=== PATIENT | female | born 1955 | race Caucasian/White ===

== ENCOUNTER → 2019-04-12 | Day surgery (SDC) | payer OTHER ==
[~2019-04-12] MED LIST: ALENDRONATE SOD70 MG PO; BONIVA150 MG PO; CALCIUM CARBON500 MG PO; HYOSCYAMINE 0.125 MG TAB ONE; METFORMIN HCL500 MG PO; SENIOR VITAMIN PO
--- OUTSIDE RECORDS SUMMARY | 2019-04-12 06:31 | XMS REPORT ---
Author Author [facility] Address Unknown Phone Unavailable Care Team Providers Care Director Of Technology Name Role Phone Unavailable Unavailable Problems This patient has no known problems. Allergies, Adverse Reactions, Alerts This patient has no known allergies or adverse reactions. Medications This patient has no known medications. Results Test Description Test Time Test Comments Text Results Atomic Results Result Comments BREAST ULTRASOUND LEFT 2018-06-07 10:06:05 - DIAG MAMM LEFT KATIE CAD DIGITALUNILATERAL LEFT DIGITAL DIAGNOSTIC MAMMOGRAM 3D/2D WITH CAD: 06/07/2018CLINICAL: Abnormal Mammogram. Digital breast tomosynthesis was performed in addition to routine CC and MLO views. Current mammographic images were evaluated by either a [employer] M- Vu or a [employer] ImageChecker CAD (computer aided detection system). Comparison is made to exams dated 05/22/2018 mammogram, 05/20/2017 mammogram, and 03/18/2016 mammogram - [facility]. The tissue of the left breast is extremely dense, which lowers the sensitivity of mammography. The abnormality seen on the screening mammogram does not persist with additional imaging, compatible with superimposition of normal breast tissue.No suspicious mass, architectural distortion, malignant type calcification, or lymph node abnormality detected. INCOMPLETE ASSESSMENT: ADDITIONAL IMAGING EVALUATION RECOMMENDEDNo mammographic evidence of malignancy.A same day whole left breast survey ultrasound was also performed. Please see report.- BREAST ULTRASOUND LEFTULTRASOUND OF LEFT BREAST AND LEFT AXILLA: 06/07/2018Comparison is made to exams dated 05/22/2018 mammogram, 05/20/2017 mammogram, and 03/18/2016 mammogram - [facility]. Color flow and real-time ultrasound of the left breast and axilla were performed. Headley scale images of the real-time examination were reviewed. No abnormalities were seen sonographically in the entire left breast or the left axilla. IMPRESSION: NEGATIVE No sonographic evidence of malignancy. Recommend annual screening mammography in one year, unless earlier diagostic evaluation is clinically warranted. The above findings and recommendations were discussed with the patient at the time of the examination.Lore Ortega MD hs/:06/07/2018 10:06:05 Entry: - 07:17:45Imaging Technologist: Wendy Llamas , [facility] sent: BIRADS 1-2 Combo FU Letter Mammogram BI-RADS: 0 Indeterminate Ultrasound BI-RADS: 1 Negative DIAG MAMM LEFT KATIE CAD DIGITAL 2018-06-07 10:06:05 - DIAG MAMM LEFT KATIE CAD DIGITALUNILATERAL LEFT DIGITAL DIAGNOSTIC MAMMOGRAM 3D/2D WITH CAD: 06/07/2018CLINICAL: Abnormal Mammogram. Digital breast tomosynthesis was performed in addition to routine CC and MLO views. Current mammographic images were evaluated by either a [employer] M-Vu or a [employer] ImageChecker CAD (computer aided detection system). Comparison is made to exams dated 05/22/2018 mammog lucio, 05/20/2017 mammogram, and [facility] The tissue of the left breast is extremely dense, which lowers the sensitivity of mammography. The abnormality seen on the screening mammogram does not persist with additional imaging, compatible with superimposition of normal breast tissue.No suspicious mass, architectural distortion, malignant type calcification, or lymph node abnormality detected. INCOMPLETE ASSESSMENT: ADDITIONAL IMAGING EVALUATION RECOMMENDEDNo mammographic evidence of malignancy.A same day whole left breast survey ultrasound was also performed. Please see report.- BREAST ULTRASOUND LEFTULTRASOUND OF LEFT BREAST AND LEFT AXILLA: 06/07/2018Comparison is made to exams dated 05/22/2018 mammogram, 05/20/2017 mammogram, and [facility]. Color flow and real-time ultrasound of the left breast and axilla were performed. Headley scale images of the real-time examination were reviewed. No abnormalities were seen sonographically in the entire left breast or the left axilla. IMPRESSION: NEGATIVE No sonographic evidence of malignancy. Recommend annual screening mammography in one year, unless earlier diagostic evaluation is clinically warranted. The above findings and recommendations were discussed with the patient at the time of the examination.Lore Ortega MD hs/:06/07/2018 10:06:05 Entry: lc - 06/13/2018 07:17:45Imaging Technologist: Wendy Llamas , [facility] BIRADS 1-2 Combo FU Letter Mammogram BI-RADS: 0 Indeterminate Ultrasound BI-RADS: 1 Negative SCR MAMM BILATERAL KATIE CAD DIGITAL 2018-05-22 14:45:59 - SCR MAMM BILATERAL KATIE CAD DIGITALBILATERAL DIGITAL SCREENING MAMMOGRAM 3D/2D WITH CAD: 05/22/2018CLINICAL: Asymptomatic. Digital breast tomosynthesis was performed in addition to routine CC and MLO views. Current mammographic images were evaluated by either a [employer] M-Vu or a [employer] ImageReceepter CAD (computer aided detection system). Comparison is made to exams dated 05/20/2017 mammogram, 03/09 mammogram, and [facility]. The tissue of both breasts is heterogeneously dense, which lowers the sensitivity of mammography. Asymmetry that measures 13 mm only seen in the left breast craniocaudal view laterally, approximately 5 cm from the nipple, possibly superimposition of tissue. No suspicious mass, architectural distortion, malignant type calcification, or lymph node abnormality detected in the right breast. IMPRESSION: INCOMPLETE ASSESSMENT: ADDITIONAL IMAGING EVALUATION RECOMMENDEDAsymmetry that measures 13 mm only seen in the left breast cranio caudal view laterally, approximately 5 cm from the nipple, possibly superimposition of tissue. Spot compression tomosynthesis and possible ultrasound are recommended at this time.Leander Wang M.D. ss/:05/22/2018 14:45:59 Stenciler: Natalia Harris , [facility] Additional Imaging Mammogram BI-RADS: 0 Indeterminate
--- OUTSIDE RECORDS SUMMARY | 2019-04-12 06:31 | XMS REPORT | Summary of Care ---
Author Author ZAK GARZA M.D. Organization Unknown Address Unknown Phone Unavailable Care Team Providers Care Forgesmith Name Role Phone ZAK GARZA M.D. Unavailable Unavailable ZAK GARZA MD Unavailable Unavailable Unavailable Unavailable Functional Status Name Dates Details Functional status health issues are not documented Status: Name Dates Details Cognitive status health issues are not documented Status: Problems Name Dates Details Encounter for gynecological examination (V72.31, Z01.419) Status: Active Post-menopausal (V49.81, Z78.0) Status: Active Osteoporosis screening (V82.81, Z13.820) Status: Active Skin lesion (709.9, L98.9) Status: Active Mass of soft tissue of left upper extremity (782.2, R22.32) Status: Active Cat scratch of left forearm, sequela (906.2, S50.812S) Status: Active Impacted cerumen of right ear (380.4, H61.21) Status: Active Impacted cerumen of left ear (380.4, H61.22) Status: Active Bilateral impacted cerumen (380.4, H61.23) Status: Active Abnormal CBC (790.6, R79.89) Status: Active Rectal bleeding (569.3, K62.5) Status: Active Dyslipidemia (272.4, E78.5) Status: Active External hemorrhoids (455.3, K64.4) Status: Active Screening mammogram, encounter for (V76.12, Z12.31) Status: Active Need for influenza vaccination (V04.81, Z23) Status: Active Need for hepatitis C screening test (V73.89, Z11.59) Status: Active Thrombocytopenia (287.5, D69.6) Status: Active Mammogram abnormal (793.80, R92.8) Status: Active Pre-diabetes (790.29, R73.03) Status: Active Age related osteoporosis, unspecified pathological fracture presence (733.01, M81.0) Status: Active BMI (body mass index) 20.0-29.9 Status: Active 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 * Quantity: 4 Refills: 0 SATTAR M.D., ZAK * Start : 14-Jun-2017 Active Proctozone-HC 2.5 % Rectal Cream APPLY ONCE DAILY NEEDED. * Refills: 0 Active 30 GM Tube Allergies and Adverse Reactions Name Dates Details Penicillins (Allergy) Status: Active Procedures Procedure Dates Details History of Foot surgery Completed History of Knee surgery Completed History of Colonoscopy Completed Immunization Name Dates Details Tdap on: 19-Jan-2017 Fluarix Quadrivalent 0.5 ML Intramuscular Suspension Prefilled Syringe on: 06-Feb-2017 Shingrix 50 MCG Intramuscular Suspension Reconstituted on: 07-Dec-2017 Fluzone Quadrivalent 0.5 ML Intramuscular Suspension Lot #: [id number] on: 30-Jan-2018 Shingrix 50 MCG Intramuscular Suspension Reconstituted on: 09-Mar-2018 Family History Name Dates Details Family history of hypertension (V17.49, Z82.49) Comments: Family History Status: Active Family history of diabetes mellitus (V18.0, Z83.3) Comments: Family History Status: Active Family history of obesity (V18.19, Z83.49) Comments: Family History Status: Active Family history of cardiac disorder (V17.49, Z82.49) Comments: Family History Status: Active Family history of malignant neoplasm of breast (V16.3, Z80.3) Comments: Family History Status: Active Name Dates Details Family history of cardiac arrest (V17.49, Z82.49) Status: Active Name Dates Details Family history of hyperlipidemia (V18.19, Z83.438) Status: Active Social History Name Dates Details - Status: Name Dates Details Never smoker Vital Signs Date Test Result Details No Known Vitals to report Results Date Description Value Details Results not documented Plan of Care Name Dates Details Planned Observations Planned Goals not documented Planned Encounters Appointment; ZAK GARZA M.D. On: 01-Mar-2019 10:00 Interventions Provided Medication Changes* Alendronate Sodium 70 MG Oral Tablet - Renew Instructions Name Dates Details Instructions not documented Encounters Appointment; ZAK GARZA M.D. Encounter Diagnosis: Problem not documented On: 13-Apr-2017 10:00 Appointment; ZAK GARZA M.D. Encounter Diagnosis: Problem not documented On: 04-May-2017 13:00 Appointment; KYARA MARQUEZ D.O. Encounter Diagnosis: Problem not documented On: 13-May-2017 11:30 Appointment; KYARA MARQUEZ D.O. Encounter Diagnosis: Problem not documented On: 14-Jun-2017 10:15 Appointment; KALYAN CHERY M.D. Encounter Diagnosis: Problem not documented On: 24-Jun-2017 9:30 Appointment; KALYAN CHERY M.D. Encounter Diagnosis: Problem not documented On: 07-Jul-2017 9:00 Appointment; CRIS HOWARD PA-C Encounter Diagnosis: Problem not documented On: 20-Jul-2017 10:00 Appointment; ZAK AGRZA M.D. Encounter Diagnosis: Problem not documented On: 03-Aug-2017 8:00 Appointment; GERALD SANDHU M.D. Encounter Diagnosis: Problem not documented On: 18-Aug-2017 9:15 Appointment; ZAK GARZA M.D. Encounter Diagnosis: Problem not documented On: 26-Sep-2017 14:30 Appointment; NICHELLE GILES M.D. Encounter Diagnosis: Problem not documented On: 17-Oct-2017 10:30 Appointment; ZAK GARZA M.D. Encounter Diagnosis: Problem not documented On: 30-Jan-2018 8:00 Appointment; ZAK GARZA M.D. Encounter Diagnosis: Problem not documented On: 23-Aug-2018 11:30
[2019-04-12 10:25] VITALS: BP 100/72
--- NOTE | 2019-04-12 12:22 | Operative Report ---
DATE OF PROCEDURE: 04/12/2019 SURGEON: Saman Heller MD PROCEDURE: Colonoscopy with polypectomy. INDICATIONS FOR COLONOSCOPY: Surveillance colonoscopy, personal history of colon polyps. MEDICATIONS: The patient was done under MAC, please see anesthesiologist's note. PROCEDURE IN DETAIL: With the patient in the left lateral decubitus position, the flexible fiberoptic Olympus colonoscope was inserted into the rectum with ease and advanced all the way to the cecum. It was then withdrawn slowly. Mucosa overlying the cecum, ascending colon, transverse colon, and descending colon appeared to be within normal limits. Diverticular disease was noted in the sigmoid colon. Two minute polyps were hot biopsied from the sigmoid and one submucosal nodule was hot biopsied from the proximal rectum. The scope was then retroflexed into the distal rectum and moderate-sized internal hemorrhoids were noted, none of which was actively bleeding. The scope was then straightened out, it was subsequently withdrawn, and the patient tolerated the procedure well. IMPRESSION: 1. Diverticulosis. 2. Sigmoid colon polyps x2, hot biopsied. 3. Minute nodule, proximal rectum, hot biopsied. 4. Internal hemorrhoids, none actively bleeding. PLAN: Follow up histology. Initiate high-fiber, low-fat diet. Initiate high-fiber supplement. The patient might benefit from a followup colonoscopy in 5 years. Saman Heller MD [facility] [place] /[id number] cc: Maura Nunez MD
== END | disposition home or self-care (01) ==
LOC: OR 06:29
PROVIDERS: ATTEND Internal Medicine Gastroenterology
DX: Z09 Encounter for follow-up examination after completed treatment for conditions other than malignant neoplasm (principal); K63.5 Polyp of colon; K62.1 Rectal polyp; K57.30 Diverticulosis of large intestine without perforation or abscess without bleeding; K64.8 Other hemorrhoids; M85.80 Other specified disorders of bone density and structure, unspecified site; E11.9 Type 2 diabetes mellitus without complications; Z88.0 Allergy status to penicillin; Z01.810 Encounter for preprocedural cardiovascular examination; Z79.84 Long term (current) use of oral hypoglycemic drugs
CPT/HCPCS: 36415; 45378; 45384; 82948; 93005

== ENCOUNTER → 2020-08-22 | Day surgery (SDC) | payer MEDICARE ==
[2020-08-19 14:39] LABS: BASOPHILS # (AUTO) 0.1 (0.0-0.1); BASOPHILS % 0.6 % (0.0-1.0); EOSINOPHILS # (AUTO) 0.1 (0.0-0.4); EOSINOPHILS % 1.6 % (0.0-6.0); HEMATOCRIT 35.5 % (34.2-44.1); HEMOGLOBIN 11.9 g/dL (12.0-16.0); LYMPHOCYTES # (AUTO) 1.9 (1.0-3.2); LYMPHOCYTES % 22.9 % (18.0-39.1); MEAN CORPUSCULAR HGB CONC 33.5 g/dL (31-35); MEAN CORPUSCULAR VOLUME 95.4 fL (81-99); MONOCYTES # (AUTO) 0.7 (0.2-0.8); MONOCYTES % 8.5 % (4.4-11.3); NEUTROPHILS # (AUTO) 5.5 (2.1-6.9); NEUTROPHILS % 66.2 % (38.7-80.0); PLATELET COUNT 285 x10e3/uL (140-360); RED BLOOD COUNT 3.72 x10e6/uL (3.6-5.1); RED CELL DISTRIBUTION WIDTH 12.3 % (11.7-14.4)
[~2020-08-22] MED LIST changes: +ESTRADIOL1 MG VG; -HYOSCYAMINE 0.125 MG TAB ONE; +HYOSCYAMINE SULFATE 0.5 MG/ML INJ ONE; +PROPOFOL IV EMULSION 10 MG/ML 20 ML VIAL ONE
[2020-08-22 13:05] VITALS: BP 138/76
[2020-08-22 13:24] LABS: WBC,FECAL (FECAL LACTOFERRIN) NEGATIVE (NEGATIVE)
[2020-08-22 14:06] LABS: C DIFFICILE TOXIN A&B AMP PROB NEGATIVE (NEGATIVE)
== END | disposition home or self-care (01) ==
LOC: OR 07:54
PROVIDERS: ATTEND Internal Medicine Gastroenterology
DX: K51.50 Left sided colitis without complications (principal); K62.89 Other specified diseases of anus and rectum; K64.8 Other hemorrhoids; E11.9 Type 2 diabetes mellitus without complications; Z88.0 Allergy status to penicillin; Z01.810 Encounter for preprocedural cardiovascular examination; Z01.812 Encounter for preprocedural laboratory examination; Z20.822 Contact with and (suspected) exposure to COVID-19; Z79.84 Long term (current) use of oral hypoglycemic drugs
CPT/HCPCS: 36415 ×2; 45380; 82948; 83630; 83993; 85025; 87493; 88305; 93005; J1980; J2704; U0002; 45378

== ENCOUNTER 2020-11-13 09:00 | Observation (INO) | payer MEDICARE ==
[2020-11-11 09:38] LABS: BASOPHILS % 0.4 % (0.0-1.0); EOSINOPHILS # (AUTO) 0.1 (0.0-0.4); EOSINOPHILS % 0.7 % (0.0-6.0); HEMATOCRIT 39.7 % (34.2-44.1); HEMOGLOBIN 13.1 g/dL (12.0-16.0); LYMPHOCYTES # (AUTO) 2.3 (1.0-3.2); LYMPHOCYTES % 26.3 % (18.0-39.1); MEAN CORPUSCULAR HEMOGLOBIN 32.1 pg (28-32); MEAN CORPUSCULAR VOLUME 97.3 fL (81-99); MONOCYTES # (AUTO) 0.6 (0.2-0.8); NEUTROPHILS # (AUTO) 5.6 (2.1-6.9); NEUTROPHILS % 65.4 % (38.7-80.0); PLATELET COUNT 245 x10e3/uL (140-360); RED BLOOD COUNT 4.08 x10e6/uL (3.6-5.1); RED CELL DISTRIBUTION WIDTH 12.4 % (11.7-14.4)
[2020-11-11 10:44] LABS: ANION GAP 15.1 mmol/L (8-16); CALCIUM 9.7 mg/dL (8.4-10.2); CREATININE, SERUM 0.72 mg/dL (0.57-1.11); POTASSIUM 4.1 mmol/L (3.5-5.1)
[~2020-11-13] VITALS: Ht 160 cm; Wt 46.7 kg
[~2020-11-13 09:00] MED LIST changes: +BUDESONIDE EC3 MG PO; -HYOSCYAMINE SULFATE 0.5 MG/ML INJ ONE; -PROPOFOL IV EMULSION 10 MG/ML 20 ML VIAL ONE
[2020-11-13] MEDS ORDERED: BUPIVACAINE HCL 0.5% INJ 30 ML VIAL INJ ONE (09:23)
[2020-11-13] MEDS ORDERED: LIDOCAINE HCL 1% LOCAL INJ 20 ML VIAL ONE (09:23)
[2020-11-13] MEDS ORDERED: LIDOCAINE HCL 2% 30 ML TUBE ONE (09:24)
[2020-11-13] MEDS ORDERED: LIDOCAINE 1% W/EPINEPHRINE 20 ML VIAL ONE (09:46)
[2020-11-13] MEDS ORDERED: ACETAMINOPHEN 1000 MG/100 ML IV PRN (11:00)
[2020-11-13] MEDS ORDERED: HYDROCODONE/APAP 7.5MG-325MG 1 EA TAB PO PRN (11:00)
[2020-11-13 12:34] VITALS: BP 117/75
[2020-11-13 13:05] VITALS: BP 117/75
[2020-11-13] MEDS ORDERED: DEXAMETHASONE SOD PHOS INJ 4 MG/ML VIAL ONE (13:05)
[2020-11-13] MEDS ORDERED: LIDOCAINE HCL 2% LOCAL INJ 5 ML SDV VIAL INJ ONE (13:05)
[2020-11-13] MEDS ORDERED: POVIDONE IODINE 0.05% 0.05 % ML PO ONE (13:05)
[2020-11-13] MEDS ORDERED: ONDANSETRON HCL INJ 2MG/ML 2ML 2 MG/ML VIAL ONE (13:05)
[2020-11-13] MEDS ORDERED: EPHEDRINE SULFATE INJ 50 MG/ML VIAL ONE (13:05)
[2020-11-13] MEDS ORDERED: KETOROLAC TROMETHAMINE 30 MG/ML VIAL ONE (13:05)
[2020-11-13] MEDS ORDERED: SEVOFLURANE INHAL SOLN 250 ML PEN BTL ONE (13:05)
[2020-11-13] MEDS ORDERED: PROPOFOL IV EMULSION 10 MG/ML 20 ML VIAL ONE (13:05)
[2020-11-13 13:20] VITALS: BP 117/75
[2020-11-13] MEDS: SODIUM CHLORIDE 0.9% 1000ML 1,000 ML IV SCH ×2 (13:40→22:31)
[2020-11-13] MEDS ORDERED: MIDAZOLAM HCL 2 MG/2 ML VIAL ONE (13:58)
[2020-11-13] MEDS ORDERED: FENTANYL CITRATE/PF 100MCG/2 ML INJ ONE (13:58)
[2020-11-13] MEDS ORDERED: LEVOFLOXACIN 500MG/D5W 100ML 100 ML IV ONE (14:00)
[2020-11-13 16:21] VITALS: BP 106/79
[2020-11-13 20:00] VITALS: BP 98/66
[2020-11-13 21:00] VITALS: BP 98/66
[2020-11-13] MEDS: ONDANSETRON HCL INJ 2MG/ML 2ML 2 MG/ML VIAL IV PRN (23:35)
[2020-11-13] MEDS: HYDROMORPHONE 1MG/1ML INJ IV PRN (23:35)
[2020-11-14] VITALS: BP 119/73
[2020-11-14] MEDS: HYDROMORPHONE 1MG/1ML INJ IV PRN ×3 (02:42→10:05)
[2020-11-14 04:00] VITALS: BP 103/67
[2020-11-14] MEDS: ONDANSETRON HCL INJ 2MG/ML 2ML 2 MG/ML VIAL IV PRN ×2 (05:52→10:05)
[2020-11-14] MEDS: SODIUM CHLORIDE 0.9% 1000ML 1,000 ML IV SCH (05:56)
[2020-11-14 07:28] VITALS: BP 100/72
[2020-11-14 07:50] VITALS: BP 100/72
[2020-11-14 11:32] VITALS: BP 108/71
[2020-11-15] MEDS ORDERED: PANTOPRAZOLE SOD 40 MG TABEC PO SCH (07:30)
== END 2020-11-14 13:30 | disposition home or self-care (01) ==
LOC: OR 09:00 → PACU V 10:59 → MED/SURG 12:26
PROVIDERS: ADMIT Surgery; ATTEND Surgery
DX: K64.5 Perianal venous thrombosis (principal); I10 Essential (primary) hypertension; E11.9 Type 2 diabetes mellitus without complications; Z01.818 Encounter for other preprocedural examination; Z79.4 Long term (current) use of insulin
CPT/HCPCS: 36415 ×3; 46260; 71046; 80048; 82948 ×2; 85025; 88304; 93005; 96375; 96376; C9113; G0378 ×2; J1100; J1170 ×2; J1885; J1956; J2001; J2250; J2405 ×2; J2704; J3010; J7030 ×2

== ENCOUNTER 2020-11-20 04:33 | Observation (INO) | payer MEDICARE ==
[~2020-11-20] VITALS: Ht 160 cm; Wt 48.1 kg
[2020-11-20] MEDS ORDERED: METRONIDAZOLE 500MG/NS 100ML 100 ML IV STA (04:37)
[2020-11-20 04:45] LABS: BASOPHILS # (AUTO) 0.1 (0.0-0.1); BASOPHILS % 0.4 % (0.0-1.0); EOSINOPHILS # (AUTO) 0.1 (0.0-0.4); HEMATOCRIT 39.8 % (34.2-44.1); HEMOGLOBIN 13.2 g/dL (12.0-16.0); LYMPHOCYTES % 15.9 % (18.0-39.1); MEAN CORPUSCULAR HEMOGLOBIN 31.8 pg (28-32); MEAN CORPUSCULAR HGB CONC 33.2 g/dL (31-35); MEAN CORPUSCULAR VOLUME 95.9 fL (81-99); MONOCYTES # (AUTO) 1.1 (0.2-0.8); MONOCYTES % 8.4 % (4.4-11.3); NEUTROPHILS # (AUTO) 9.3 (2.1-6.9); NEUTROPHILS % 73.9 % (38.7-80.0); PLATELET COUNT 234 x10e3/uL (140-360); RED BLOOD COUNT 4.15 x10e6/uL (3.6-5.1); RED CELL DISTRIBUTION WIDTH 12.3 % (11.7-14.4)
[2020-11-20] MEDS ORDERED: MORPHINE SULFATE INJ 4 MG/ML INJ 1ML IV PRN (04:45)
[2020-11-20] MEDS ORDERED: CEFTRIAXONE 1 GM VIAL IV ONE (04:45)
[2020-11-20] MEDS ORDERED: CEFTRIAXONE 1 GM in SODIUM CHLORIDE 0.9% 50ML 50 ML IV STA (04:45)
[2020-11-20] MEDS ORDERED: METRONIDAZOLE 500MG/NS 100ML 100 ML IV ONE (04:50)
[2020-11-20] MEDS ORDERED: CEFTRIAXONE 1 GM VIAL ONE (04:51)
[2020-11-20] MEDS ORDERED: SODIUM CHLORIDE 0.9% 1000ML 1,000 ML ONE (04:51)
[2020-11-20] MEDS: SODIUM CHLORIDE 0.9% 1000ML 1,000 ML IV SCH ×3 (04:54→17:11)
[2020-11-20 05:04] LABS: ALBUMIN 4.1 g/dL (3.5-5.0); ALBUMIN/GLOBULIN RATIO 1.2 (0.8-2.0); CALCIUM 9.5 mg/dL (8.4-10.2); CREATININE, SERUM 0.73 mg/dL (0.57-1.11)
[2020-11-20] MEDS: ONDANSETRON HCL INJ 2MG/ML 2ML 2 MG/ML VIAL IV PRN ×2 (06:05→21:20)
[2020-11-20 06:27] LABS: CLARITY,URINE CLEAR (CLEAR); COLOR,URINE YELLOW (YELLOW); KETONES,URINE NEGATIVE (NEGATIVE); LEUKOCYTE ESTERASE ,URINE NEGATIVE (NEGATIVE); NITRITE,URINE NEGATIVE (NEGATIVE); PROTEIN,URINE DIPSTICK NEGATIVE (NEGATIVE); URINE UROBILINOGEN 0.2 mg/dL (0.2 - 1)
[2020-11-20 06:46] LABS: RBC,URINE 0-5 /HPF (0-5); WBC,URINE (MAN) 0-5 /HPF (0-5)
[2020-11-20 06:47] LABS: AMORPHOUS SEDIMENT,URINE MANY (FEW); BACTERIA,URINE RARE /HPF; EPITHELIAL CELLS,URINE RARE /LPF
[2020-11-20 08:30] VITALS: BP 121/80
[2020-11-20 08:45] VITALS: BP 121/81
[2020-11-20 09:18] VITALS: BP 121/80
[2020-11-20] MEDS ORDERED: BUDESONIDE EC3 MG PO (10:06)
[2020-11-20] MEDS ORDERED: LIDOCAINE HCL 2% 30 ML TUBE ONE (11:05)
[2020-11-20] MEDS ORDERED: LIDOCAINE 1% W/EPINEPHRINE 20 ML VIAL ONE (11:05)
[2020-11-20] MEDS ORDERED: BUPIVACAINE HCL 0.5% INJ 30 ML VIAL INJ ONE (11:05)
[2020-11-20] MEDS ORDERED: BUPIVACAINE LIPOSOME/PF 266 MG/20 ML IJ ONE (11:06)
[2020-11-20] MEDS ORDERED: HYDROCODONE/APAP 7.5MG-325MG 1 EA TAB PO PRN (12:00)
[2020-11-20] MEDS ORDERED: KETOROLAC TROMETHAMINE 30 MG/ML VIAL IV PRN (12:00)
[2020-11-20] MEDS ORDERED: LIDOCAINE HCL 2% LOCAL INJ 5 ML SDV VIAL INJ ONE (12:35)
[2020-11-20] MEDS ORDERED: SEVOFLURANE INHAL SOLN 250 ML PEN BTL ONE (12:35)
[2020-11-20] MEDS ORDERED: ONDANSETRON HCL INJ 2MG/ML 2ML 2 MG/ML VIAL ONE (12:35)
[2020-11-20] MEDS ORDERED: EPHEDRINE SULFATE INJ 50 MG/ML VIAL ONE (12:35)
[2020-11-20] MEDS ORDERED: PROPOFOL IV EMULSION 10 MG/ML 20 ML VIAL ONE (12:35)
[2020-11-20] MEDS ORDERED: POVIDONE IODINE 0.05% 0.05 % ML PO ONE (12:35)
[2020-11-20] MEDS ORDERED: MAGNESIUM HYDROXIDE 30 ML UDC PO ONE (12:45)
[2020-11-20] MEDS ORDERED: MIDAZOLAM HCL 2 MG/2 ML VIAL ONE (13:13)
[2020-11-20] MEDS ORDERED: FENTANYL CITRATE/PF 100MCG/2 ML INJ ONE (13:13)
[2020-11-20] MEDS: LEVOFLOXACIN 500MG/D5W 100ML 100 ML IV SCH (13:16)
[2020-11-20] MEDS: HYDROMORPHONE 1MG/1ML INJ IV PRN ×3 (15:15→21:20)
[2020-11-20] MEDS: TRIAMCINOLONE 0.1% OINTMENT 15 GM TUBE TP SCH ×2 (16:09→21:00)
[2020-11-20 16:17] VITALS: BP 139/84
[2020-11-20 20:00] VITALS: BP 131/80
[2020-11-20 20:35] VITALS: BP 131/80
[2020-11-21] VITALS: BP 135/85
[2020-11-21] MEDS: HYDROMORPHONE 1MG/1ML INJ IV PRN (00:22)
[2020-11-21] MEDS: SODIUM CHLORIDE 0.9% 1000ML 1,000 ML IV SCH ×2 (01:13→09:44)
[2020-11-21 04:00] VITALS: BP 139/86
[2020-11-21 06:16] LABS: BASOPHILS # (AUTO) 0.1 (0.0-0.1); BASOPHILS % 0.4 % (0.0-1.0); EOSINOPHILS # (AUTO) 0.1 (0.0-0.4); EOSINOPHILS % 0.4 % (0.0-6.0); HEMOGLOBIN 11.2 g/dL (12.0-16.0); LYMPHOCYTES % 8.3 % (18.0-39.1); MEAN CORPUSCULAR HEMOGLOBIN 32.1 pg (28-32); MEAN CORPUSCULAR HGB CONC 32.9 g/dL (31-35); MEAN CORPUSCULAR VOLUME 97.4 fL (81-99); MONOCYTES # (AUTO) 1.1 (0.2-0.8); MONOCYTES % 9.1 % (4.4-11.3); NEUTROPHILS # (AUTO) 9.6 (2.1-6.9); NEUTROPHILS % 81.3 % (38.7-80.0); PLATELET COUNT 236 x10e3/uL (140-360); RED BLOOD COUNT 3.49 x10e6/uL (3.6-5.1); RED CELL DISTRIBUTION WIDTH 12.6 % (11.7-14.4)
[2020-11-21 06:45] LABS: ANION GAP 9.3 mmol/L (8-16); CALCIUM 8.1 mg/dL (8.4-10.2); CREATININE, SERUM 0.66 mg/dL (0.57-1.11); POTASSIUM 4.3 mmol/L (3.5-5.1)
[2020-11-21 07:24] VITALS: BP 139/86
[2020-11-21 07:56] VITALS: BP 130/78
[2020-11-21] MEDS: TRIAMCINOLONE 0.1% OINTMENT 15 GM TUBE TP SCH ×2 (08:10→13:32)
[2020-11-21 11:49] VITALS: BP 121/73
[2020-11-21] MEDS: LEVOFLOXACIN 500MG/D5W 100ML 100 ML IV SCH (13:32)
[2020-11-21 15:52] VITALS: BP 133/92
== END 2020-11-21 17:40 | disposition home or self-care (01) ==
LOC: ER 04:40 → ERHOLD 04:41 → MED/SURG2 08:29
PROVIDERS: ADMIT Surgery; ATTEND Surgery
DX: K56.41 Fecal impaction (principal); Z88.0 Allergy status to penicillin; R33.9 Retention of urine, unspecified; Z98.890 Other specified postprocedural states
CPT/HCPCS: 36415 ×2; 45915; 51700; 74018; 80048; 80053; 81001; 82948 ×2; 85025 ×2; 99283; C9113 ×2; C9290; G0378 ×2; J0696; J1170 ×2; J1956 ×2; J2001; J2250; J2270; J2405; J2704; J3010; J7030 ×2